=== PATIENT | male | born 1950 | race Caucasian/White ===

== ENCOUNTER → 2016-11-07 | Outpatient (CLI) | payer MEDICARE ==
--- NOTE | 2016-11-07 11:42 | US ---
EXAMINATION TYPE: US kidneys/renal and bladder DATE OF EXAM: 11/07/2016 9:02 AM COMPARISON: NONE CLINICAL HISTORY: 66-year-old male with R31.9 hematuria. TECHNIQUE: Multiple sonographic images of the kidneys and bladder were obtained. FINDINGS: EXAM MEASUREMENTS: Right Kidney: 12.1 x 5.7 x 4.6 cm without hydronephrosis. There is a hypoechoic structure within the upper to mid pole measuring 2.2 cm, partially exophytic. Left Kidney: 11.4 x 6.0 x 5.1 cm without hydronephrosis. No gross abnormality of the partially urine distended bladder. Both ureteral jets are visualized. IMPRESSION: 1. No hydronephrosis. 2. A 2.2 cm partially exophytic hypoechoic lesion from the upper to mid pole right kidney. While a co mplicated cyst is possible, given the appearance, a small solid mass is not excluded. A follow-up darnell al mass protocol MRI or CT can be performed to further characterize.
--- NOTE | 2016-11-07 11:52 | XR ---
EXAMINATION TYPE: XR chest 2V DATE OF EXAM: 11/07/2016 9:26 AM COMPARISON: 03/18/2016 HISTORY: 66-year-old male with chest pain TECHNIQUE: AP and lateral views FINDINGS: The cardiomediastinal silhouette, aorta, and pulmonary vasculature are within normal limits. Some str john atelectasis along the left heart margin. No consolidation or pleural effusion. However, there is a large hiatal hernia demonstrated. Some lobulated density is seen within the herni a sac projection. IMPRESSION: 1. No acute cardiopulmonary process. 2. Large hiatal hernia. Some lobulated density within the hernia on the lateral view could be project ional or could represent retained ingested material. Correlate to exclude any upper GI bleeding such as from a gastric neoplastic process. Direct visualization as clinically indicated.
--- NOTE | 2016-11-07 12:40 | XR ---
EXAMINATION TYPE: AP view pelvis and 2 views each hip DATE OF EXAM: 11/07/2016 9:26 AM COMPARISON: NONE HISTORY: 66-year-old male with pain and history of arthritis. FINDINGS: There is mild marginal spurring of both hips with subchondral sclerosis along the acetabular roofs. N o acute fracture, subluxation, or dislocation is identified. Pubic symphysis and SI joints appear int act. IMPRESSION: Mild bilateral hip osteoarthrosis. No acute osseous abnormality seen.
--- NOTE | 2016-11-07 12:44 | XR ---
EXAMINATION TYPE: XR lumbosacral spine min 4V DATE OF EXAM: 11/07/2016 9:26 AM COMPARISON: NONE HISTORY: 66-year-old male with a history of pain TECHNIQUE: 5 views FINDINGS: Levoconvex rotary curvature of the lumbar spine with hypertrophic facet arthropathy mid to lower lumb ar spine. There are 5 lumbar-type vertebral bodies. No pars interarticularis defect. Moderate to francia re degenerative disc disease at L5-S1 and then at L4-L5. This is characterized by disc space narrowin g, endplate sclerosis and spondylosis and vacuum phenomenon. There is grade 1 retrolisthesis of L2-L3. Vertebral body heights are preserved. IMPRESSION: 1. Moderate to advanced degenerative disc disease in the lower lumbar spine and hypertrophic facet ar thropathy mid to lower lumbar spine. 2. Degenerative grade 1 retrolisthesis at L2/L3. 3. No vertebral compression collapse.
== END | disposition home or self-care (01) ==
LOC: RADUSMAIN 08:32
PROVIDERS: ATTEND Family Medicine
DX: N28.9 Disorder of kidney and ureter, unspecified (principal); K44.9 Diaphragmatic hernia without obstruction or gangrene; M16.0 Bilateral primary osteoarthritis of hip; M51.36 Other intervertebral disc degeneration, lumbar region; M12.88 Other specific arthropathies, not elsewhere classified, other specified site
CPT/HCPCS: 71020; 72110; 73521; 76770

== ENCOUNTER → 2016-11-11 | Outpatient (CLI) | payer MEDICARE ==
[2016-11-11 18:19] LABS: Blood Urea Nitrogen 25 mg/dL (9-20); Non-African American GFR(MDRD) >60 (>60 ml/min/1.73 sqM)
--- NOTE | 2016-11-12 08:05 | CT ---
EXAMINATION TYPE: CT abdomen wo/w con DATE OF EXAM: 11/11/2016 6:47 PM COMPARISON: NONE HISTORY: Pt states of adrenal mass. CT DLP: 1629.9 mGycm CONTRAST: CT scan of the abdomen is performed with Oral Contrast and without and with IV Contrast, patient inje cted with 100 mL of Omnipaque 300. FINDINGS: LUNG BASES-: No visible nodule. No infiltrate. LIVER/GB: No calcified gallstones. No space occupying hepatic lesion. Biliary tree is of normal ca liber. PANCREAS: No inflammation. No distinct mass. SPLEEN: No splenic enlargement. No lesion seen. ADRENALS: No nodule. No thickening. KIDNEYS/BLADDER: No hydronephrosis. Nonobstructing 3 mm calculus lower pole left kidney. 3.5 cm simp le exophytic cyst midpole right kidney. Urinary bladder grossly unremarkable. BOWEL: Normal bowel caliber. No inflammation. The stomach is entirely intrathoracic in position. LYMPH NODES: No greater than 1cm abdominal or pelvic lymph nodes are appreciated. AORTA: No significant abnormality. OSSEOUS STRUCTURES: No significant abnormality is seen. OTHER: No significant additional abnormality is seen. IMPRESSION: 1. No adrenal mass or thickening seen. 2.The stomach is entirely intrathoracic in position. 3. Nonobstructing calculus left kidney.
== END | disposition home or self-care (01) ==
LOC: RADCTMAIN 17:35
PROVIDERS: ATTEND Family Medicine
DX: N20.0 Calculus of kidney (principal)
CPT/HCPCS: 82565; 84520; 74170; 36415; Q9967

== ENCOUNTER 2016-11-17 06:45 | Day surgery (SDC) | payer MEDICARE ==
[2016-11-15 11:29] VITALS: BMI 29.2
[~2016-11-17 06:45] MED LIST: LACTATED RINGERS 1,000 ML IV SCH
[2016-11-17 07:15] VITALS: TEMP 97.5
[2016-11-17 07:19] LABS: Glucose,Whole Blood 187 mg/dL (75-99)
[2016-11-17] MEDS ORDERED: LACTATED RINGERS 1,000 ML IV ONE ×2 (07:19)
[2016-11-17] MEDS ORDERED: LIDOCAINE 1% INJ 10MG/ML (20 ML MDV) ONE (07:54)
[2016-11-17] MEDS ORDERED: PROPOFOL 10 MG/ML 20 ML VIAL IV ONE (07:54)
[2016-11-17 08:39] VITALS: BP 116/79; PULSE 67; RESP 18
[2016-11-17 08:51] LABS: Glucose,Whole Blood 188 mg/dL (75-99)
--- NOTE | 2016-11-17 12:32 | P.PCN ---
Date of Procedure: 11/17/16 Procedure(s) Performed: Procedure: Esophagogastroduodenoscopy and biopsy. Preoperative diagnosis: Anemia. Postoperative diagnosis: 1. Large hiatal hernia with no obvious esophagitis or complicated reflux disease. 2. Mild antral gastritis. 2. Duodenum with large duodenal bulb polyp snared and removed piecemeal. Preparation and sedation: Was provided by anesthesia. Brief clinical history: The patient is a 66-year-old male who is referred for this evaluation because of anemia. The patient had colonoscopy within the last year or 2. He has no upper GI complaints or alarm symptoms. Procedure: With the patient on his left lateral decubitus position and after informed consent and adequate sedation, I passed the Olympus-GIF 160 video upper endoscope through the cricopharyngeus down the esophagus. GE junction was around 35 cm from the incisors and the esophagus did not show any obvious esophagitis or complicated reflux disease or any mucosal tears or varices. The endoscope was then passed through a large hiatal hernia to the rest of the stomach which was insufflated with air and inspected in detail including the retroflex view in the cardia. There was minimal mottling and erythema in the antrum but no ulcers or erosions. Pyloric channel did not show any ulcers. Duodenal bulb showed mild erythema and a large polyp measuring around 2-3 cm. It was showing some friability. I removed the polyp with the snare piecemeal. Post bulbar area and descending duodenum appeared within normal limits. Because of the anemia, I obtained multiple biopsies from the duodenum, antrum and esophagus then the endoscope was withdrawn. The patient tolerated the procedure well. Plan: The patient was reassured. Will await pathology results. Consideration can be given for a capsule endoscopy depending on his course and pathology results. He will follow up with you as planned.
== END 2016-11-17 09:25 | disposition home or self-care (01) ==
LOC: ORWHC2ENDO 06:45
DX: K44.9 Diaphragmatic hernia without obstruction or gangrene (principal); K29.70 Gastritis, unspecified, without bleeding; K31.7 Polyp of stomach and duodenum; I10 Essential (primary) hypertension; E78.5 Hyperlipidemia, unspecified; J45.909 Unspecified asthma, uncomplicated; E11.9 Type 2 diabetes mellitus without complications; Z79.84 Long term (current) use of oral hypoglycemic drugs; K21.9 Gastro-esophageal reflux disease without esophagitis; F39 Unspecified mood [affective] disorder; Z79.1 Long term (current) use of non-steroidal anti-inflammatories (NSAID); Z79.899 Other long term (current) drug therapy
CPT/HCPCS: 88305; 88342; 43239; 43251; J2001; J2704; 44364; 44369; 45380; 45385; 99153

== ENCOUNTER → 2018-03-17 | Outpatient (CLI) | payer MEDICARE ==
[2018-03-17 10:19] LABS: Anisocytosis Slight; Basophils % (A) 1 %; Eosinophils # (A) 0.1 k/uL (0-0.7); Eosinophils % (A) 2 %; HCT 30.6 % (39.0-53.0); HGB 8.9 gm/dL (13.0-17.5); Hypochromasia Marked; Lymphocytes # (A) 1.1 k/uL (1.0-4.8); Lymphocytes % (A) 26 %; MCH 20.3 pg (25.0-35.0); Mean Platelet Volume 7.2; Microcytosis Marked; Monocytes # (A) 0.3 k/uL (0-1.0); Monocytes % (A) 7 %; Neutrophils # (A) 2.6 k/uL (1.3-7.7); Neutrophils % (A) 62 %; Platelet Count 267 k/uL (150-450); Poikilocytosis Slight; RBC 4.37 m/uL (4.30-5.90); RDW 16.3 % (11.5-15.5); WBC 4.2 k/uL (3.8-10.6)
[2018-03-17 10:40] LABS: ALT 33 U/L (21-72); AST 26 U/L (17-59); Albumin 3.7 g/dL (3.5-5.0); Alkaline Phosphatase 117 U/L (38-126); Anion Gap 10 mmol/L; Blood Urea Nitrogen 19 mg/dL (9-20); Carbon Dioxide 24 mmol/L (22-30); Chloride 104 mmol/L (98-107); Cholesterol 187 mg/dL (<200); Glucose 225 mg/dL (74-99); HDL Cholesterol 41 mg/dL (40-60); LDL Cholesterol,Calculated 100 mg/dL (0-99); Potassium 5.4 mmol/L (3.5-5.1); Sodium 138 mmol/L (137-145); Total Bilirubin 0.3 mg/dL (0.2-1.3); Total Protein 5.8 g/dL (6.3-8.2); Triglycerides 229 mg/dL (<150)
[2018-03-17 20:07] LABS: Hemoglobin A1C 10.1 % (4.0-6.0)
== END | disposition home or self-care (01) ==
LOC: LABWHC1 08:45
PROVIDERS: ATTEND Family Medicine
DX: E11.9 Type 2 diabetes mellitus without complications (principal); E78.5 Hyperlipidemia, unspecified; I10 Essential (primary) hypertension
CPT/HCPCS: 36415; 80053; 80061; 82043; 82570; 83036; 85025

== ENCOUNTER → 2019-08-26 | Outpatient (CLI) | payer MEDICARE ==
--- NOTE | 2019-08-26 10:31 | XR ---
EXAMINATION TYPE: XR chest 2V DATE OF EXAM: 08/26/2019 COMPARISON: 09/07/2017 HISTORY: 69-year-old male pneumonia and cough TECHNIQUE: Frontal and lateral views FINDINGS: Heart normal size. Aorta and pulmonary vasculature within normal limits. There is some mild patchy pe ripheral left basilar opacity. Redemonstrated large hiatal hernia. IMPRESSION: Redemonstrated large hiatal hernia with intrathoracic stomach. There is some patchy peripheral left basilar opacity that could represent atelectasis or mild infiltrate.
== END | disposition home or self-care (01) ==
LOC: RADXRMAIN 10:08
PROVIDERS: ATTEND Family Medicine
DX: R91.8 Other nonspecific abnormal finding of lung field (principal); K44.9 Diaphragmatic hernia without obstruction or gangrene
CPT/HCPCS: 71046

== ENCOUNTER 2019-10-07 10:37 | Emergency (ER) | payer MEDICARE ==
[2019-10-07 11:17] VITALS: RESP 18; TEMP 98.5
[2019-10-07] MEDS ORDERED: IPRATROPIUM-ALBUTEROL 3 ML NEB INHALATION STA (11:44)
--- NOTE | 2019-10-07 12:19 | XR ---
EXAMINATION TYPE: XR chest 2V DATE OF EXAM: 10/07/2019 COMPARISON: Chest x-ray August 26, 2019. HISTORY: History of pneumonia with difficulty breathing. TECHNIQUE: Frontal and lateral views of the chest are obtained. FINDINGS: There is no focal air space opacity, pleural effusion, or pneumothorax seen currently. In terval resolution of a left basilar opacity. The cardiac silhouette size is stable and upper limits o f normal. Retrocardiac opacity consistent with large size hiatal hernia redemonstrated. Multilevel s purring of thoracic spine again seen. IMPRESSION: No suspicious acute infiltrate currently.
--- NOTE | 2019-10-07 12:29 | ED ---
SOB HPI - General Chief Complaint: Shortness of Breath Stated Complaint: SOB Time Seen by Provider: 10/07/19 11:27 Source: patient Mode of arrival: ambulatory Limitations: no limitations - History of Present Illness Initial Comments: Patient is a 69-year-old male presenting to emergency Department with complaints of shortness of breath secondary to pneumonia for 2 months. Patient was first and is pneumonia and July, he was rechecked a month later and pneumonia was still there so he was retreated with abx and placed on steroids. Patient presents today with continued cough, congestion, shortness of breath, burning with cough. He still has 2 more days of steroids to take however his symptoms have not improved. Patient does have history of asthma. Patient denies fever, chills although he's been having hot flashes. Patient denies nausea, vomiting, abdominal pain. Patient is no other complaints at this time. Upon arrival to the ER, patient was stating at 94% on room air, rest of vitals are normal. - Related Data Home Medications Medication Instructions Recorded Confirmed Citalopram Hydrobromide [CeleXA] 20 mg PO DAILY 03/18/16 11/15/16 Enalapril [Vasotec] 5 mg PO DAILY 03/18/16 11/15/16 Metoprolol Tartrate [Lopressor] 25 mg PO BID 03/18/16 11/15/16 Montelukast Sodium [Singulair] 10 mg PO HS 03/18/16 11/15/16 metFORMIN HCL [Glucophage] 500 mg PO BID 03/18/16 11/15/16 Atorvastatin [Lipitor] 40 mg PO HS 11/15/16 11/15/16 Ferrous Sulfate [Feosol] 325 mg PO TID 11/15/16 11/15/16 Ibuprofen [Motrin] 800 mg PO Q8HR PRN 11/15/16 11/15/16 Ranitidine HCl [Zantac] 150 mg PO BID 11/15/16 11/15/16 Rescue Inhaler 1 puff INHALATION DIRECTED PRN 11/15/16 Allergies Allergy/AdvReac Type Severity Reaction Status Date / Time No Known Allergies Allergy Verified 10/07/19 11:11 Review of Systems ROS Statement: Those systems with pertinent positive or pertinent negative responses have been documented in the HPI. ROS Other: All systems not noted in ROS Statement are negative. Past Medical History Past Medical History: Asthma, Cancer, Diabetes Mellitus, GERD/Reflux, Hyperlipidemia, Hypertension, Osteoarthritis (OA) Additional Past Medical History / Comment(s): HIATAL HERNIA, HX OF MELANOMA, FREQUENT DIARRHEA, HEMATURIA., ANEMIA. History of Any Multi-Drug Resistant Organisms: None Reported Past Surgical History: Cardiac Ablation Additional Past Surgical History / Comment(s): MELANOMA REMOVED. Past Anesthesia/Blood Transfusion Reactions: No Reported Reaction Past Psychological History: Anxiety Smoking Status: Never smoker Past Alcohol Use History: Occasional Past Drug Use History: None Reported - Past Family History Father Family Medical History: Cancer Additional Family Medical History / Comment(s): COLON CANCER General Exam - General Exam Comments Initial Comments: GENERAL: Well-appearing, well-nourished and in no acute distress. HEAD: Atraumatic, normocephalic. EYES: Pupils equal round and reactive to light, extraocular movements intact, sclera anicteric, conjunctiva are normal. ENT: TMs normal, nares patent, oropharynx clear without exudates. Moist mucous membranes. NECK: Normal range of motion, supple without lymphadenopathy or JVD. LUNGS: Breath sounds clear to auscultation bilaterally and equal. No wheezes rales or rhonchi. Dry cough noticed. HEART: Regular rate and rhythm without murmurs, rubs or gallops. ABDOMEN: Soft, nontender, normoactive bowel sounds. No guarding, no rebound. No masses appreciated. : Deferred EXTREMITIES: Normal range of motion, no pitting or edema. No clubbing or cyanosis. NEUROLOGICAL: Normal speech, normal gait. PSYCH: Normal mood, normal affect. SKIN: Warm, Dry, normal turgor, no rashes or lesions noted. Limitations: no limitations Course Vital Signs 10/07/19 10/07/19 10/07/19 11:11 11:38 12:17 Temperature 98.5 F Pulse Rate 71 67 Respiratory 18 18 Rate Blood Pressure 125/78 O2 Sat by Pulse 94 L Oximetry 10/07/19 10/07/19 10/07/19 12:27 12:44 14:17 Temperature Pulse Rate 65 75 67 Respiratory 18 18 Rate Blood Pressure 110/83 129/70 O2 Sat by Pulse 96 98 Oximetry 10/07/19 15:11 Temperature 98.5 F Pulse Rate 67 Respiratory 18 Rate Blood Pressure 129/70 O2 Sat by Pulse 98 Oximetry Medical Decision Making - Medical Decision Making Patient is 69-year-old male presenting with shortness of breath, cough has been ongoing for 2 months. Patient was treated with for pneumonia twice now with antibiotic and steroids. Patient is 94% on room air, rest of vitals normal upon arrival. Labs show leukocytosis of 15.3. CMP is normal. Troponin is normal. No acute EKG changes. Chest x-ray shows no acute abnormalities. D-dimer is elevated. CT chest was performed, no acute PE. Small bilateral pleural effusions. Follow-up study recommended to rule out underlying mass or nodule. Patient's vital signs remained stable. Discussed these findings with the patient. 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 Santizo in. He will continue his course of steroids. No further antibiotics are indicated at this time. Patient is in agreement with this plan of care. Patient is stable for discharge at this time. Return parameters were discussed with the patient and he verbalized understanding. Case discussed with Dr. Neri. - Lab Data Result diagrams: 10/07/19 11:50 10/07/19 11:50 Lab Results 10/07/19 10/07/19 10/07/19 Range/Units 11:50 11:50 11:50 WBC 15.3 H (3.8-10.6) k/uL RBC 5.04 (4.30-5.90) m/uL Hgb 13.9 (13.0-17.5) gm/dL Hct 43.4 (39.0-53.0) % MCV 86.2 D (80.0-100.0) fL MCH 27.5 (25.0-35.0) pg MCHC 31.9 (31.0-37.0) g/dL RDW 13.8 (11.5-15.5) % Plt Count 279 (150-450) k/uL Neutrophils % 84 % Lymphocytes % 9 % Monocytes % 5 % Eosinophils % 1 % Basophils % 0 % Neutrophils # 12.8 H (1.3-7.7) k/uL Lymphocytes # 1.4 (1.0-4.8) k/uL Monocytes # 0.7 (0-1.0) k/uL Eosinophils # 0.2 (0-0.7) k/uL Basophils # 0.0 (0-0.2) k/uL PT 10.2 (9.0-12.0) sec INR 0.9 (<1.2) APTT 24.6 (22.0-30.0) sec D-Dimer (<0.60) mg/L FEU Sodium 137 (137-145) mmol/L Potassium 5.5 H (3.5-5.1) mmol/L Chloride 101 (98-107) mmol/L Carbon Dioxide 25 (22-30) mmol/L Anion Gap 11 mmol/L BUN 17 (9-20) mg/dL Creatinine 0.93 (0.66-1.25) mg/dL Est GFR (CKD-EPI)AfAm >90 (>60 ml/min/1.73 sqM) Est GFR (CKD-EPI)NonAf 84 (>60 ml/min/1.73 sqM) Glucose 161 H (74-99) mg/dL Calcium 9.4 (8.4-10.2) mg/dL Total Bilirubin 0.9 (0.2-1.3) mg/dL AST 41 (17-59) U/L ALT 25 (4-49) U/L Alkaline Phosphatase 124 (38-126) U/L Troponin I (0.000-0.034) ng/mL Total Protein 8.0 (6.3-8.2) g/dL Albumin 4.4 (3.5-5.0) g/dL 10/07/19 10/07/19 Range/Units 11:50 11:50 WBC (3.8-10.6) k/uL RBC (4.30-5.90) m/uL Hgb (13.0-17.5) gm/dL Hct (39.0-53.0) % MCV (80.0-100.0) fL MCH (25.0-35.0) pg MCHC (31.0-37.0) g/dL RDW (11.5-15.5) % Plt Count (150-450) k/uL Neutrophils % % Lymphocytes % % Monocytes % % Eosinophils % % Basophils % % Neutrophils # (1.3-7.7) k/uL Lymphocytes # (1.0-4.8) k/uL Monocytes # (0-1.0) k/uL Eosinophils # (0-0.7) k/uL Basophils # (0-0.2) k/uL PT (9.0-12.0) sec INR (<1.2) APTT (22.0-30.0) sec D-Dimer 1.30 H (<0.60) mg/L FEU Sodium (137-145) mmol/L Potassium (3.5-5.1) mmol/L Chloride (98-107) mmol/L Carbon Dioxide (22-30) mmol/L Anion Gap mmol/L BUN (9-20) mg/dL Creatinine (0.66-1.25) mg/dL Est GFR (CKD-EPI)AfAm (>60 ml/min/1.73 sqM) Est GFR (CKD-EPI)NonAf (>60 ml/min/1.73 sqM) Glucose (74-99) mg/dL Calcium (8.4-10.2) mg/dL Total Bilirubin (0.2-1.3) mg/dL AST (17-59) U/L ALT (4-49) U/L Alkaline Phosphatase (38-126) U/L Troponin I <0.012 (0.000-0.034) ng/mL Total Protein (6.3-8.2) g/dL Albumin (3.5-5.0) g/dL - EKG Data EKG Comments: Ventricular rate 67, FL interval 148, QTc 456. Sinus rhythm with marked sinus arrhythmia. No acute ST segment changes. Similar to previous 2016. Disposition Clinical Impression: Cough, Dyspnea Disposition: HOME SELF-CARE Condition: Stable Instructions (If sedation given, give patient instructions): Chronic Cough (ED) Additional Instructions: Please return to the Emergency Department if symptoms worsen or any other concerns. Initial course of steroids. Follow-up with Dr. Salcedo as discussed Is patient prescribed a controlled substance at d/c from ED?: No Referrals: Rhonda Hensley MD [Primary Care Provider] - 1-2 days Yi Nickerson MD [STAFF PHYSICIAN] - 1-2 days
[2019-10-07 12:35] LABS: Basophils % (A) 0 %; Eosinophils # (A) 0.2 k/uL (0-0.7); Eosinophils % (A) 1 %; HCT 43.4 % (39.0-53.0); HGB 13.9 gm/dL (13.0-17.5); Lymphocytes # (A) 1.4 k/uL (1.0-4.8); Lymphocytes % (A) 9 %; MCH 27.5 pg (25.0-35.0); MCHC 31.9 g/dL (31.0-37.0); Mean Platelet Volume 10.2; Monocytes # (A) 0.7 k/uL (0-1.0); Monocytes % (A) 5 %; Neutrophils # (A) 12.8 k/uL (1.3-7.7); Neutrophils % (A) 84 %; Platelet Count 279 k/uL (150-450); RBC 5.04 m/uL (4.30-5.90); RDW 13.8 % (11.5-15.5); WBC 15.3 k/uL (3.8-10.6)
[2019-10-07 12:39] LABS: MCV 86.2 fL (80.0-100.0)
[2019-10-07 12:40] LABS: ALT 25 U/L (4-49); AST 41 U/L (17-59); African American GFR (CKD) >90 (>60 ml/min/1.73 sqM); Albumin 4.4 g/dL (3.5-5.0); Alkaline Phosphatase 124 U/L (38-126); Anion Gap 11 mmol/L; Blood Urea Nitrogen 17 mg/dL (9-20); Calcium 9.4 mg/dL (8.4-10.2); Carbon Dioxide 25 mmol/L (22-30); Chloride 101 mmol/L (98-107); Glucose 161 mg/dL (74-99); Non-African American GFR(CKD) 84 (>60 ml/min/1.73 sqM); Sodium 137 mmol/L (137-145); Total Bilirubin 0.9 mg/dL (0.2-1.3)
[2019-10-07 12:43] LABS: INR 0.9 (<1.2); Partial Thromboplastin Time 24.6 sec (22.0-30.0); Prothrombin Time 10.2 sec (9.0-12.0)
[2019-10-07 12:52] LABS: Potassium 5.5 mmol/L (3.5-5.1)
[2019-10-07 14:17] VITALS: BP 129/70; PULSE 67
--- NOTE | 2019-10-07 14:56 | CT ---
EXAMINATION TYPE: CT angio chest DATE OF EXAM: 10/07/2019 COMPARISON: NONE HISTORY: Dyspnea, cough and elevated d-dimer. CT DLP: 591.4 mGycm. Automated Exposure Control for Dose Reduction was Utilized. CONTRAST: CTA scan of the thorax is performed with IV Contrast, patient injected with 100 mL of Isovue 370, pul monary embolism protocol. MIP Images are created on CT scanner and reviewed. FINDINGS: LUNGS: There is right lower lobe masslike consolidation laterally near image 93 and posteriorly near image 99 with tiny right greater than left pleural effusions. Left lung is clear. No pneumothorax jaylyn aterally. MEDIASTINUM: There is satisfactory enhancement of the pulmonary artery and its branches, there is no CT evidence for pulmonary embolism. There are no greater than 1 cm hilar or mediastinal lymph nodes . Small to tiny or pericardial effusion is seen. No cardiomegaly. There is moderate to large sized hi atal hernia or intrathoracic stomach with twisting and poor distention. Mild gas filled prominence of proximal mid esophagus superior to this without suspicious focal dilatation. OTHER: [id number] fat replaced atrophy of pancreas. [id number] multilevel spurring in t he spine. IMPRESSION: 1. No CT evidence for acute pulmonary embolism. 2. Tiny right greater than left pleural effusions with multifocal right basilar masslike consolidatio ns favor multifocal right lower lobe pneumonias. Follow-up study after treatment is advised to rule o ut underlying mass or nodule.
== END 2019-10-07 15:24 | disposition home or self-care (01) ==
LOC: EC 10:37
DX: R05 Cough (principal); R06.02 Shortness of breath; D72.829 Elevated white blood cell count, unspecified; R79.1 Abnormal coagulation profile; J90 Pleural effusion, not elsewhere classified; J45.909 Unspecified asthma, uncomplicated; E11.9 Type 2 diabetes mellitus without complications; K21.9 Gastro-esophageal reflux disease without esophagitis; E78.5 Hyperlipidemia, unspecified; I10 Essential (primary) hypertension; M19.90 Unspecified osteoarthritis, unspecified site; D64.9 Anemia, unspecified; F41.9 Anxiety disorder, unspecified; Z79.1 Long term (current) use of non-steroidal anti-inflammatories (NSAID); Z79.84 Long term (current) use of oral hypoglycemic drugs; Z79.899 Other long term (current) drug therapy; Z85.820 Personal history of malignant melanoma of skin; Z87.01 Personal history of pneumonia (recurrent); Z98.890 Other specified postprocedural states
CPT/HCPCS: 36415; 94640; 93005; 85379; 80053; 84484; 85025; 85610; 85730; 71046; 71275; 99285; Q9967

== ENCOUNTER → 2020-03-19 | Outpatient (CLI) | payer MEDICARE ==
--- NOTE | 2020-03-19 14:40 | CT ---
EXAMINATION TYPE: CT chest w con DATE OF EXAM: 03/19/2020 COMPARISON: 10/07/2019 HISTORY: 69-year-old male lobar pneumonia Follow up scan per patient. TECHNIQUE: Contiguous axial scanning of the chest after the administration of 100 mL of Isovue 300. Coronal/sagittal reconstructions performed. CT DLP: 530mGycm. Automatic exposure control utilized for a dose reduction. FINDINGS: Large lobulated nodule of the isthmus and inferior left lobe measuring up to 4.0 x 2.3 cm and be furt her evaluated with dedicated thyroid ultrasound. It appears relatively similar to prior exam. Heart normal size without pericardial effusion. Scattered coronary artery calcifications are present. Ectatic ascending aorta 2.8 cm. Bovine configuration to the aortic arch. Mild bilateral gynecomastia. Following but nonenlarged 1.0 cm subcarinal lymph node is slightly small er from prior exam. Previous masslike areas of consolidation within the posterior right lower lobe show significant inter beryl improvement. Residual patchy nodular densities remain, axial image 47 and 51. An additional 6 mon th follow-up can reassess Large hiatal hernia containing the entire stomach within the lower left chest. Small renal cortical cysts. Scattered left-sided colonic diverticulosis. Fatty atrophy of the pancrea s. Bones: Anterior spondylosis with a thoracic spine with mild to moderate degenerative disc disease. IMPRESSION: 1. Significant interval improvement with some residual patchy and nodular density at the right base t hat could represent scarring. Additional 6 month follow-up recommended to reassess. 2. Redemonstrated large hiatal hernia with the entire stomach located within the lower left chest. 3. Lobulated 4.0 x 2.3 cm left thyroid nodule. Dedicated thyroid ultrasound recommended to further ch aracterize.
== END | disposition home or self-care (01) ==
LOC: RADCTMAIN 12:47
PROVIDERS: ATTEND Internal Medicine Critical Care Medicine
DX: E04.1 Nontoxic single thyroid nodule (principal); K44.9 Diaphragmatic hernia without obstruction or gangrene; R91.1 Solitary pulmonary nodule; J18.1 Lobar pneumonia, unspecified organism
CPT/HCPCS: 82565; 84520; 71260; 36415; Q9967

== ENCOUNTER → 2020-03-27 | Outpatient (CLI) | payer MEDICARE ==
[2020-03-27 08:27] LABS: HGB 13.4 gm/dL (13.0-17.5); Hypochromasia Slight; MCH 27.5 pg (25.0-35.0); MCHC 31.2 g/dL (31.0-37.0); Mean Platelet Volume 8.7; Platelet Count 202 k/uL (150-450); RBC 4.89 m/uL (4.30-5.90); RDW 14.8 % (11.5-15.5); WBC 6.1 k/uL (3.8-10.6)
[2020-03-27 08:30] LABS: Appearance,Urine Clear (Clear); Bilirubin,Urine Negative (Negative); Blood,Urine Negative (Negative); Color,Urine Yellow; Glucose,Urine (UA) 1+ (Negative); Ketones,Urine Negative (Negative); Leukocyte Esterase,Urine Negative (Negative); Nitrite,Urine Negative (Negative); PH, Urine 5.5 (5.0-8.0); Protein,Urine Trace (Negative); Specific Gravity,Urine 1.021 (1.001-1.035); Urobilinogen,Urine <2.0 mg/dL (<2.0)
[2020-03-27 16:53] LABS: African American GFR (CKD) 88.6 (60.0-200.0); Albumin 4.2 g/dL (3.80-4.90); Albumin/Globulin Ratio 2.47 (1.60-3.17); Anion Gap 8.3 mmol/L (4.00-12.00); Calcium 8.8 mg/dL (8.7-10.3); Carbon Dioxide 23.7 mmol/L (21.6-31.8); Chol/HDL Ratio 3.93; Globulin 1.7 g/dL (1.6-3.3); LDL Cholesterol,Calculated 91.8 mg/dL (0.0-131.0); Non-African American GFR(CKD) 76.5 (60.0-200.0); Potassium 5.5 mmol/L (3.5-5.5); Total Bilirubin 0.3 mg/dL (0.2-1.2); Total Protein 5.9 g/dL (6.2-8.2); VLDL Calculation 25.2 mg/dL (5.00-40.00)
[2020-03-28 04:14] LABS: Hemoglobin A1C 7.7 % (4.0-6.0)
== END | disposition home or self-care (01) ==
LOC: LABWHC1 07:31
PROVIDERS: ATTEND Family Medicine
DX: E11.9 Type 2 diabetes mellitus without complications (principal); E78.5 Hyperlipidemia, unspecified; I10 Essential (primary) hypertension; Z79.899 Other long term (current) drug therapy
CPT/HCPCS: 36415; 80053; 80061; 81003; 82550; 83036; 85027

== ENCOUNTER → 2020-04-01 | Outpatient (CLI) | payer MEDICARE ==
--- NOTE | 2020-04-02 07:41 | US ---
EXAMINATION TYPE: US thyroid st tissue head/neck DATE OF EXAM: 04/01/2020 COMPARISON: CT CLINICAL HISTORY: R22.1 Neck mass/Lump. Left thyroid nodule seen on CT. GLAND SIZE: Right Lobe: 3.6 x 1.9 x 1.1 cm Overall Parenchyma: heterogenous Left Lobe: 5.5 x 3.2 x 2.2 cm Overall Parenchyma: heterogeneous Isthmus Thickness: 0.5 cm NODULES RIGHT: # of nodules measured on right: 0 LEFT: # of nodules measured on left: 2 1. 1.0 X 0.6 x 0.7 cm hypoechoic mixed nodule at the upper pole with well-defined margins. This no dule is taller than wide and shows no intranodular vascularity. 2. 3.4 X 3.2 x 2.3 cm isoechoic mixed nodule at the mid and lower pole with well-defined margins. T his nodule is wider than tall and shows intranodular vascularity. ISTHMUS: # of nodules measured in the isthmus: 0 Bilateral neck scanned: no evidence of lymphadenopathy. IMPRESSION: 1. Two enlarged thyroid lobe nodules.
== END | disposition home or self-care (01) ==
LOC: RADUSWWP 16:04
PROVIDERS: ATTEND Family Medicine
DX: E04.2 Nontoxic multinodular goiter (principal)
CPT/HCPCS: 76536

== ENCOUNTER → 2020-11-16 | Outpatient (CLI) | payer MEDICARE ==
--- NOTE | 2020-11-16 22:23 | US ---
EXAMINATION TYPE: US thyroid st tissue head/neck DATE OF EXAM: 11/16/2020 COMPARISON: Prior thyroid ultrasound April 01, 2020 CLINICAL HISTORY: E04.1 THYROID NODULE. follow up exam GLAND SIZE: Right Lobe: 3.6 x 0.9 x 1.7 cm Overall Parenchyma: homogenous Left Lobe: 5.3 x 2.7 x 2.3 cm Overall Parenchyma: heterogeneous Isthmus Thickness: 0.6 cm NODULES RIGHT: # of nodules measured on right: 0 LEFT: # of nodules measured on left: 1 1. 4.1 X 3.8 x 2.3 cm mixed cystic and solid nodule, which is wider than tall, with smooth margins, without echogenic foci. Prior size: 3.4 x 3.2 x 2.3 cm ISTHMUS: # of nodules measured in the isthmus: 0 Bilateral neck scanned, no evidence of lymphadenopathy. Homogeneous small size right thyroid with more heterogeneous enlarged left thyroid due to dominant so lid and cystic nodule. No significant interval change accounting for technical differences. IMPRESSION: As above. No new greater than 1 cm nodules. Correlate clinically if sampling has been per formed or documented long-term stability for dominant left thyroid nodule.
--- NOTE | 2020-11-17 06:42 | CT ---
EXAMINATION TYPE: CT chest wo con DATE OF EXAM: 11/16/2020 COMPARISON: CT chest March 19, [address] October 07, 2019 HISTORY: Pulmonary nodule. CT DLP: 659 mGycm. Automated Exposure Control for Dose Reduction was Utilized. TECHNIQUE: CT scan of the thorax is performed without IV contrast. FINDINGS: LUNGS: Occasional scattered micronodule, for reference there is stable 2 to 3 mm peripheral posterior right upper lobe nodule axial image 13. Mild to moderate bibasilar linear scarring and/or atelectasi s slightly more nodular in appearance in the right lung base laterally and posteriorly shows no signi ficant interval increase in size or progression from most recent CT. Postinflammatory scarring is salazar pected. No new greater than 5 mm pulmonary nodules or masses. No pleural effusion or pneumothorax see n. MEDIASTINUM: Lack of IV contrast is noted to limit evaluation for mediastinal and especially hilar ad enopathy. There are no definitive new greater than 1 cm hilar or mediastinal lymph nodes. No cardio megaly or pericardial effusion is seen. Calcification at level of mitral valve and mild to moderate c alcification in the LAD are redemonstrated. There is persistent large hiatal hernia or intrathoracic stomach with abnormal twisting. There is enlarged left thyroid with large thyroid nodule redemonstrat ed. OTHER: Small degree of subareolar gynecomastia redemonstrated. Moderate generalized fat replaced atro phy of pancreas. Scoliotic curvature with multilevel spurring in the spine. IMPRESSION: Postinflammatory changes in the right lung base thought present. No new or enlarging grea ter than 5 mm nodules.
== END | disposition home or self-care (01) ==
LOC: RADUSWWP 16:29
PROVIDERS: ATTEND Family Medicine
DX: E04.2 Nontoxic multinodular goiter (principal); J98.4 Other disorders of lung
CPT/HCPCS: 71250; 76536

== ENCOUNTER → 2021-01-06 | Outpatient (CLI) | payer MEDICARE ==
[2021-01-06 12:25] LABS: HCT 41.4 % (39.0-53.0); HGB 13.8 gm/dL (13.0-17.5); MCH 28.1 pg (25.0-35.0); MCHC 33.2 g/dL (31.0-37.0); MCV 84.5 fL (80.0-100.0); Mean Platelet Volume 7.8; Platelet Count 214 k/uL (150-450); RDW 14.3 % (11.5-15.5); WBC 7.3 k/uL (3.8-10.6)
[2021-01-06 12:41] LABS: African American GFR (CKD) >90 (>60 ml/min/1.73 sqM); Anion Gap 8 mmol/L; Blood Urea Nitrogen 18 mg/dL (9-20); Carbon Dioxide 25 mmol/L (22-30); Chloride 102 mmol/L (98-107); Non-African American GFR(CKD) 79 (>60 ml/min/1.73 sqM); Sodium 135 mmol/L (137-145)
== END | disposition home or self-care (01) ==
LOC: LABPAT 11:39
PROVIDERS: ATTEND Internal Medicine Interventional Cardiology
DX: Z01.818 Encounter for other preprocedural examination (principal); R94.39 Abnormal result of other cardiovascular function study
CPT/HCPCS: 36415; 80051; 82565; 84520; 85027

== ENCOUNTER 2021-01-15 06:33 | Day surgery (SDC) | payer MEDICARE ==
[2021-01-08 11:05] VITALS: BMI 31.1
[~2021-01-15 06:33] MED LIST changes: +ALPRAZolam 0.25 MG TAB PO PRN; +ALPRAZolam 0.5 MG TAB PO PRN; +ASPIRIN 325 MG TAB PO STA; +ATORVASTATIN 80 MG TAB PO STA; +HEPARIN SODIUM,PORCINE 10,000 UNIT in SODIUM CHLORIDE 0.9% 1,000 ML IRRIGATION PRN; +HEPARIN SODIUM,PORCINE 2,500 UNIT in SODIUM CHLORIDE 0.9% 250 ML IRRIGATION PRN; -LACTATED RINGERS 1,000 ML IV SCH; +NITROGLYCERIN SL TABS 0.4 MG TAB SUBLINGUAL PRN; +SODIUM CHLORIDE 0.9% 1,000 ML in EMPTY BAG 1 BAG IV ONE
[2021-01-15] MEDS ORDERED: SODIUM CHLORIDE 0.9% 1,000 ML IV ONE (06:53)
[2021-01-15 07:08] LABS: Glucose,Whole Blood 207 mg/dL (75-99)
[2021-01-15 07:12] VITALS: RESP 16; TEMP 98.5
[2021-01-15] MEDS ORDERED: VERAPAMIL 2.5 MG/ML 2 ML AMP ONE (07:30)
[2021-01-15] MEDS ORDERED: LIDOCAINE 1% INJ 10MG/ML (20 ML MDV) ONE (07:30)
[2021-01-15] MEDS ORDERED: INSULIN ASPART (NovoLOG) 100 UNIT/ML VIAL SQ SCH (07:30)
[2021-01-15] MEDS ORDERED: fentaNYL (PF) 50 MCG/ML 2 ML AMP ONE (07:31)
[2021-01-15] MEDS ORDERED: fentaNYL (PF) 50 MCG/ML 2 ML AMP IVP ONE (07:33)
[2021-01-15] MEDS ORDERED: LIDOCAINE 1% INJ 10MG/ML (20 ML MDV) SQ ONE (07:35)
[2021-01-15] MEDS ORDERED: VERAPAMIL SYRINGE (5 MG/10 ML) INTRAARTER ONE (07:38)
[2021-01-15] MEDS ORDERED: HEPARIN SODIUM 1,000 UN/ML (10ML VL) IV ONE (07:48)
[2021-01-15] MEDS ORDERED: IOPAMIDOL-370 125ML BTL INJ ONE (07:57)
[2021-01-15] MEDS ORDERED: RESCUE INHALATION PRN (08:07)
[2021-01-15] MEDS ORDERED: RX INFO: IV CONTRAST WAS GIVEN 1 EACH MISC MISCELLANE PRN (08:07)
[2021-01-15] MEDS ORDERED: SODIUM CHLORIDE 0.9% 1,000 ML IV SCH (08:15)
--- NOTE | 2021-01-15 08:54 | CC ---
CARDIAC CATHETERIZATION REPORT Mr. Lamas is a 70-year-old male with a history of hypertension, hyperlipidemia, diabetes mellitus, and history of mild coronary artery disease by cardiac catheterization in 2015 who has been complaining of dyspnea on exertion underwent myocardial perfusion imaging that revealed evidence of inducible ischemia. In view of that, recommendation was made regarding cardiac catheterization. The procedure as well as the risks and the complications were discussed with the patient who is in full understanding and agreement. PROCEDURE: Patient was brought to lab rep in a fasting semi-sedated state after receiving fentanyl and Benadryl and achieving moderate conscious sedated state. Using Xylocaine anesthesia and Seldinger technique, a 6-Lao sheath was introduced in the right radial artery. Selective right and left coronary angiography performed using 5-Lao 3.5 bend left Sammi and 5 bend right Sammi catheter. Multiple views of the coronary artery including hemiaxial views obtained. The Sammi catheter was used to cross the aortic valve. Left ventricular end-diastolic pressure was calculated. Following that, catheter and sheath were removed. Hemostasis was obtained with deployment of TR band. There was no immediate complication. Patient is returned to his room in stable condition. FINDINGS: LEFT MAIN: This is a large-sized vessel, bifurcating into left circumflex, left anterior descending artery. Left main coronary artery has no evidence of high-grade stenosis. LEFT ANTERIOR DESCENDING ARTERY: This is a large-sized vessel reaching to the apex. Tapers down distal third, giving rise to a large diagonal branch proximally. The left anterior descending artery as well as branches have no evidence of obstructive coronary artery disease. LEFT CIRCUMFLEX: This is a nondominant large size vessel, giving rise to a large first obtuse marginal branch. The left circumflex and its branches have no evidence of obstructive coronary artery disease. RIGHT CORONARY ARTERY: This is a dominant vessel, large in caliber, bifurcating distally PDA and posterolateral segment and branches. The proximal right coronary artery has a 20% plaque. There is another plaque at the proximal segment of the PLV of 20%. The rest of the vessel has no high-grade stenosis. LEFT VENTRICULOGRAM: Left ventriculogram was not performed. HEMODYNAMICS: There was no gradient across the aortic valve. The left ventricular end-diastolic pressure was 10-12 mmHg. CONCLUSION: 1. Mild obstructive disease in the right coronary artery. 2. Normal left coronary anatomy. RECOMMENDATION: In view of finding anatomy, I recommend to continue medical therapy with aggressive coronary risk modifications that has been initiated. Those findings and recommendation were discussed with the patient and his family and they are in full understanding and agreement. Duration of sedation is 24 minutes. ROXANNE / MAYITON: [id number] /
--- NOTE | 2021-01-15 08:58 | LTR ---
January 15, 2021 Re: Vikas Lamas Dear Dr. Hensley: I had the opportunity to perform cardiac catheterization on Mr. Lamas at [facility] on the 15 of January and a full copy of the procedure note will be forwarded to you. In brief, he was found to have mild obstructive disease with no evidence of high- grade stenosis and based on those findings, I recommend to continue medical therapy with aggressive coronary risk modification that has been initiated. Thank you again for allowing me the opportunity to participate in his care. Please feel free to call for any questions. Sincerely yours, MD JOHANN McmahonL / MAYITON: [id number] /
[2021-01-15] MEDS ORDERED: METOPROLOL TARTRATE 25 MG TAB PO SCH (09:00)
[2021-01-15] MEDS ORDERED: FERROUS SULFATE 325 MG TAB PO SCH (09:00)
[2021-01-15] MEDS ORDERED: ENALAPRIL 5 MG PO SCH (09:00)
[2021-01-15] MEDS ORDERED: CITALOPRAM HYDROBROMIDE 20 MG TAB PO SCH (09:00)
[2021-01-15 13:54] VITALS: BP 136/76; PULSE 95
[2021-01-15] MEDS ORDERED: glipiZIDE 10 MG TAB PO SCH (17:30)
[2021-01-15] MEDS ORDERED: ATORVASTATIN 40 MG TAB PO SCH (21:00)
[2021-01-15] MEDS ORDERED: MONTELUKAST 10 MG TAB PO SCH (21:00)
== END 2021-01-15 13:03 | disposition home or self-care (01) ==
LOC: CATHCVL 06:33
PROVIDERS: ATTEND Internal Medicine Interventional Cardiology
DX: I25.10 Atherosclerotic heart disease of native coronary artery without angina pectoris (principal); I10 Essential (primary) hypertension; E78.00 Pure hypercholesterolemia, unspecified; E11.9 Type 2 diabetes mellitus without complications; E78.2 Mixed hyperlipidemia; Z87.891 Personal history of nicotine dependence; Z79.82 Long term (current) use of aspirin; Z79.899 Other long term (current) drug therapy; Z79.84 Long term (current) use of oral hypoglycemic drugs
CPT/HCPCS: 93458; C1769 ×2; C1894; J2001; J3010; J1644; Q9967

== ENCOUNTER 2021-12-12 07:33 | Emergency (ER) | payer MEDICARE ==
--- NOTE | 2021-12-12 08:26 | XR ---
EXAMINATION TYPE: XR chest 2V DATE OF EXAM: 12/12/2021 COMPARISON: 10/07/2019 HISTORY: Shortness of breath TECHNIQUE: Frontal and lateral views of the chest are obtained. FINDINGS: Scattered senescent parenchymal changes noted. Hyperinflation compatible with COPD. Left lower lobe atelectasis and/or infiltrate seen. Heart size is stable. Mediastinal structures are stable and grossly unremarkable. No evidence for hilar prominence. Degenerative changes dorsal spine. IMPRESSION: 1. Left lower lobe atelectasis and/or infiltrate seen.
[2021-12-12] MEDS ORDERED: cefTRIAXone 1,000 MG VIAL (IM USE) IM STA (08:36)
[2021-12-12] MEDS ORDERED: AZITHROMYCIN 250 MG TAB PO STA (08:39)
--- NOTE | 2021-12-12 08:39 | ED ---
General Adult HPI - General Chief complaint: Upper Respiratory Infection Stated complaint: cough, chest congestion Time Seen by Provider: 12/12/21 07:41 Source: patient, RN notes reviewed Mode of arrival: ambulatory Limitations: no limitations - History of Present Illness Initial comments: 71-year-old male presents emergency Department chief complaint of cough congestion times one week. Patient states started with sore throat and nasal congestion states she has a cough. He states since cough more and nighttime. He states is productive at times he complains of subjective fever with chills no chest painor shortness breath at this time denies any abdominal pain no leg swelling leg pain patient states that he has had prior vaccine for covid 19 - Related Data Home Medications Medication Instructions Recorded Confirmed Citalopram Hydrobromide [CeleXA] 20 mg PO DAILY 03/18/16 01/15/21 Enalapril [Vasotec] 5 mg PO DAILY 03/18/16 01/15/21 Metoprolol Tartrate [Lopressor] 25 mg PO BID 03/18/16 01/15/21 Montelukast Sodium [Singulair] 10 mg PO HS 03/18/16 01/15/21 metFORMIN HCL [Glucophage] 500 mg PO BID 03/18/16 01/15/21 Atorvastatin [Lipitor] 40 mg PO HS 11/15/16 01/15/21 Ferrous Sulfate [Feosol] 325 mg PO TID 11/15/16 01/15/21 Ranitidine HCl [Zantac] 150 mg PO BID 11/15/16 01/15/21 Rescue Inhaler 1 puff INHALATION DIRECTED PRN 11/15/16 01/08/21 glipiZIDE [Glucotrol] 20 mg PO AC-BID 01/08/21 01/15/21 Previous Rx's Medication Instructions Recorded Azithromycin [Zithromax Z-pack (6 0 mg PO DIRECTED #1 packet 12/12/21 tabs)] Allergies Allergy/AdvReac Type Severity Reaction Status Date / Time No Known Allergies Allergy Verified 12/12/21 07:39 Review of Systems ROS Statement: Those systems with pertinent positive or pertinent negative responses have been documented in the HPI. ROS Other: All systems not noted in ROS Statement are negative. Past Medical History Past Medical History: Asthma, Cancer, Diabetes Mellitus, GERD/Reflux, Hyperlipidemia, Hypertension, Osteoarthritis (OA) Additional Past Medical History / Comment(s): HIATAL HERNIA, HX OF MELANOMA, FREQUENT DIARRHEA, HEMATURIA., ANEMIA. History of Any Multi-Drug Resistant Organisms: None Reported Past Surgical History: Cardiac Ablation, Heart Catheterization Additional Past Surgical History / Comment(s): MELANOMA REMOVED. COLONOSCOPY, Past Anesthesia/Blood Transfusion Reactions: No Reported Reaction Past Psychological History: Anxiety Smoking Status: Never smoker Past Alcohol Use History: None Reported Past Drug Use History: None Reported - Past Family History Father Family Medical History: Cancer Additional Family Medical History / Comment(s): COLON CANCER General Exam Limitations: no limitations General appearance: alert, in no apparent distress Head exam: Present: atraumatic, normocephalic, normal inspection Eye exam: Present: normal appearance, PERRL, EOMI. Absent: scleral icterus, conjunctival injection, periorbital swelling ENT exam: Present: normal exam, normal oropharynx, mucous membranes moist Neck exam: Present: normal inspection, full ROM. Absent: tenderness, meningismus, lymphadenopathy Respiratory exam: Present: rhonchi (Left lower). Absent: normal lung sounds bilaterally, respiratory distress, wheezes, rales, stridor Cardiovascular Exam: Present: regular rate, normal rhythm, normal heart sounds. Absent: systolic murmur, diastolic murmur, rubs, gallop, clicks Extremities exam: Present: normal capillary refill. Absent: pedal edema, calf tenderness Course Vital Signs 12/12/21 07:37 Temperature 98.5 F Pulse Rate 81 Respiratory 20 Rate Blood Pressure 140/83 O2 Sat by Pulse 97 Oximetry Medical Decision Making - Medical Decision Making Patient has negative covid 19, , x-ray shows evidence of early infiltrate left lower lobe consistent with patient's history patient's pulse ox within normal limits, no tachycardia, no fever noted. Patient was given Rocephin and discharged on azithromycin strict return parameters were discussed. - Lab Data Lab Results 12/12/21 Range/Units 07:53 Coronavirus (PCR) Not Detected (Not Detectd) Disposition Clinical Impression: Left lower lobe pneumonia Disposition: HOME SELF-CARE Condition: Stable Instructions (If sedation given, give patient instructions): Bacterial Pneumonia (ED) Additional Instructions: Please return to the Emergency Department if symptoms worsen or any other concerns. Prescriptions: Azithromycin [Zithromax Z-pack (6 tabs)] 0 mg PO DIRECTED #1 packet Is patient prescribed a controlled substance at d/c from ED?: No Referrals: Elyse Hammond MD [Primary Care Provider] - 1-2 days Time of Disposition: 08:39
[2021-12-12 08:52] VITALS: BP 122/77; PULSE 67; RESP 18; TEMP 98.7
== END 2021-12-12 09:02 | disposition home or self-care (01) ==
LOC: EC 07:33
DX: J18.9 Pneumonia, unspecified organism (principal); Z20.822 Contact with and (suspected) exposure to COVID-19; J45.909 Unspecified asthma, uncomplicated; E11.9 Type 2 diabetes mellitus without complications; K21.9 Gastro-esophageal reflux disease without esophagitis; I10 Essential (primary) hypertension; E78.5 Hyperlipidemia, unspecified; M19.90 Unspecified osteoarthritis, unspecified site; F41.9 Anxiety disorder, unspecified; Z79.84 Long term (current) use of oral hypoglycemic drugs; Z79.899 Other long term (current) drug therapy
CPT/HCPCS: 99283; 96372; 87635; 71046; J0696

== ENCOUNTER 2022-02-07 17:36 | Observation (INO) | payer MEDICARE ==
[2022-02-07] MEDS ORDERED: NITROGLYCERIN OINT 1 INCH/GM PACKET TOPICAL STA (17:44)
[2022-02-07 18:20] LABS: Albumin 3.7 g/dL (3.5-5.0); Calcium 8.3 mg/dL (8.4-10.2); Magnesium 1.6 mg/dL (1.6-2.3); Potassium 4.5 mmol/L (3.5-5.1); Total Bilirubin 0.4 mg/dL (0.2-1.3); Total Protein 6.1 g/dL (6.3-8.2)
[2022-02-07 18:22] LABS: Basophils % (A) 1 %; Eosinophils # (A) 0.1 k/uL (0-0.7); Eosinophils % (A) 2 %; HCT 34.7 % (39.0-53.0); HGB 10.4 gm/dL (13.0-17.5); Hypochromasia Marked; Lymphocytes # (A) 0.6 k/uL (1.0-4.8); Lymphocytes % (A) 12 %; MCH 23.3 pg (25.0-35.0); MCV 77.6 fL (80.0-100.0); Mean Platelet Volume 8.1; Microcytosis Slight; Monocytes # (A) 0.4 k/uL (0-1.0); Monocytes % (A) 7 %; Neutrophils # (A) 4.1 k/uL (1.3-7.7); Neutrophils % (A) 76 %; Platelet Count 207 k/uL (150-450); RBC 4.48 m/uL (4.30-5.90); RDW 15.2 % (11.5-15.5); WBC 5.4 k/uL (3.8-10.6)
[2022-02-07 18:23] LABS: Partial Thromboplastin Time 23.3 sec (22.0-30.0); Prothrombin Time 10.7 sec (9.0-12.0)
--- NOTE | 2022-02-07 18:54 | XR ---
EXAMINATION TYPE: XR chest 2V DATE OF EXAM: 02/07/2022 6:10 PM COMPARISON: Chest radiographs from 12/12/2021, CT chest 11/16/2020. TECHNIQUE: XR chest 2V Frontal and lateral views of the chest. CLINICAL INDICATION:Male, 71 years old with history of Chest Pain; FINDINGS: Lungs/Pleura: There is no evidence of pleural effusion, focal consolidation, or pneumothorax. Pulmonary vascularity: Unremarkable. Heart/mediastinum: Cardiomediastinal silhouette is unremarkable. Large hiatal hernia is present appea rs bigger than prior radiograph but similar prior CT. Musculoskeletal: No acute osseous pathology. IMPRESSION: 1. No acute cardiopulmonary disease/process. Large hiatal hernia similar to prior's.
--- NOTE | 2022-02-07 19:27 | ED ---
General Adult HPI - General Chief complaint: Chest Pain Stated complaint: chest pain, SOB Time Seen by Provider: 02/07/22 17:36 Source: patient, EMS, RN notes reviewed, old records reviewed Mode of arrival: EMS Limitations: no limitations - History of Present Illness Initial comments: This is a 71-year-old male with a past medical history significant for diabetes hypertension and high cholesterol patient also states his family history positive for heart disease. Patient comes in today because he started having left-sided chest pain also cause him to have shortness of breath. Patient denies any palpitations. Patient denies any radiation of the pain. Patient denied any diaphoretic episodes states she was mildly nauseated. Patient denies any recent fever chills or cough. Patient states he did difficulty flexing. Patient denies any abdominal pain patient denies any vomiting or diarrhea. - Related Data Home Medications Medication Instructions Recorded Confirmed Citalopram Hydrobromide [CeleXA] 20 mg PO DAILY 03/18/16 02/07/22 Enalapril [Vasotec] 5 mg PO DAILY 03/18/16 02/07/22 Metoprolol Tartrate [Lopressor] 25 mg PO BID 03/18/16 02/07/22 Montelukast Sodium [Singulair] 10 mg PO HS 03/18/16 02/07/22 glipiZIDE [Glucotrol] 20 mg PO AC-BID 01/08/21 02/07/22 Famotidine [Pepcid] 20 mg PO BID 02/07/22 02/07/22 Simvastatin [Zocor] 40 mg PO DAILY 02/07/22 02/07/22 metFORMIN HCL [Glucophage] 1,000 mg PO BID 02/07/22 02/07/22 Allergies Allergy/AdvReac Type Severity Reaction Status Date / Time No Known Allergies Allergy Verified 02/07/22 19:09 Review of Systems ROS Statement: Those systems with pertinent positive or pertinent negative responses have been documented in the HPI. ROS Other: All systems not noted in ROS Statement are negative. Past Medical History Past Medical History: Asthma, Cancer, Diabetes Mellitus, GERD/Reflux, Hyperlip idemia, Hypertension, Osteoarthritis (OA) Additional Past Medical History / Comment(s): HIATAL HERNIA, HX OF MELANOMA, FREQUENT DIARRHEA, HEMATURIA., ANEMIA. History of Any Multi-Drug Resistant Organisms: None Reported Past Surgical History: Cardiac Ablation, Heart Catheterization Additional Past Surgical History / Comment(s): MELANOMA REMOVED. COLONOSCOPY, Past Anesthesia/Blood Transfusion Reactions: No Reported Reaction Past Psychological History: Anxiety Smoking Status: Never smoker Past Alcohol Use History: None Reported Past Drug Use History: None Reported - Past Family History Father Family Medical History: Cancer Additional Family Medical History / Comment(s): COLON CANCER General Exam - General Exam Comments Initial Comments: GENERAL: Patient is well-developed and well-nourished. Patient is nontoxic and well- hydrated and is in mild distress. ENT: Neck is soft and supple. No significant lymphadenopathy is noted. Oropharynx is clear. Moist mucous membranes. Neck has full range of motion without elic iting any pain. EYES: The sclera were anicteric and conjunctiva were pink and moist. Extraocular movements were intact and pupils were equal round and reactive to light. Eyelids were unremarkable. PULMONARY: Unlabored respirations. Good breath sounds bilaterally. No audible rales rhonchi or wheezing was noted. CARDIOVASCULAR: There is a regular rate and rhythm without any murmurs gallops or rubs. ABDOMEN: Soft and nontender with normal bowel sounds. No palpable organomegaly was noted . There is no palpable pulsatile mass. SKIN: Skin is clear with no lesions or rashes and otherwise unremarkable. NEUROLOGIC: Patient is alert and oriented x3. Cranial nerves II through XII are grossly intact. Motor and sensory are also intact. Normal speech, volume and content. Symmetrical smile. MUSCULOSKELETAL: Normal extremities with adequate strength and full range of motion. No lower extremity swelling or edema. No calf tenderness. LYMPHATICS: No significant lymphadenopathy is noted PSYCHIATRIC: Normal psychiatric evaluation. Limitations: no limitations Course Vital Signs 02/07/22 02/07/22 17:38 19:22 Pulse Rate 86 91 Respiratory 18 18 Rate Blood Pressure 158/86 120/69 O2 Sat by Pulse 98 94 L Oximetry Medical Decision Making - Medical Decision Making EKG shows sinus rhythm at 81 bpm MS interval 174 QRS is 96 QT interval 370 QTC is 408 per patient's EKG shows no ST segment elevation or depression Chest x-ray showed no acute abnormality I spoke with Dr. Ho he agreed to admit the patient admitted the patient consult cardiology - Lab Data Result diagrams: 02/07/22 17:47 02/07/22 17:47 Lab Results 02/07/22 02/07/22 02/07/22 Range/Units 17:47 17:47 17:47 WBC 5.4 (3.8-10.6) k/uL RBC 4.48 (4.30-5.90) m/uL Hgb 10.4 L (13.0-17.5) gm/dL Hct 34.7 L (39.0-53.0) % MCV 77.6 L (80.0-100.0) fL MCH 23.3 L (25.0-35.0) pg MCHC 30.0 L (31.0-37.0) g/dL RDW 15.2 (11.5-15.5) % Plt Count 207 (150-450) k/uL MPV 8.1 Neutrophils % 76 % Lymphocytes % 12 % Monocytes % 7 % Eosinophils % 2 % Basophils % 1 % Neutrophils # 4.1 (1.3-7.7) k/uL Lymphocytes # 0.6 L (1.0-4.8) k/uL Monocytes # 0.4 (0-1.0) k/uL Eosinophils # 0.1 (0-0.7) k/uL Basophils # 0.0 (0-0.2) k/uL Hypochromasia Marked Microcytosis Slight PT 10.7 (9.0-12.0) sec INR 1.0 (<1.2) APTT 23.3 (22.0-30.0) sec Sodium (137-145) mmol/L Potassium (3.5-5.1) mmol/L Chloride (98-107) mmol/L Carbon Dioxide (22-30) mmol/L Anion Gap mmol/L BUN (9-20) mg/dL Creatinine (0.66-1.25) mg/dL Est GFR (CKD-EPI)AfAm (>60 ml/min/1.73 sqM) Est GFR (CKD-EPI)NonAf (>60 ml/min/1.73 sqM) Glucose (74-99) mg/dL Calcium (8.4-10.2) mg/dL Magnesium (1.6-2.3) mg/dL Total Bilirubin (0.2-1.3) mg/dL AST (17-59) U/L ALT (4-49) U/L Alkaline Phosphatase (38-126) U/L Troponin I (0.000-0.034) ng/mL Total Protein (6.3-8.2) g/dL Albumin (3.5-5.0) g/dL Coronavirus (PCR) Not Detected (Not Detectd) 02/07/22 02/07/22 Range/Units 17:47 17:47 WBC (3.8-10.6) k/uL RBC (4.30-5.90) m/uL Hgb (13.0-17.5) gm/dL Hct (39.0-53.0) % MCV (80.0-100.0) fL MCH (25.0-35.0) pg MCHC (31.0-37.0) g/dL RDW (11.5-15.5) % Plt Count (150-450) k/uL MPV Neutrophils % % Lymphocytes % % Monocytes % % Eosinophils % % Basophils % % Neutrophils # (1.3-7.7) k/uL Lymphocytes # (1.0-4.8) k/uL Monocytes # (0-1.0) k/uL Eosinophils # (0-0.7) k/uL Basophils # (0-0.2) k/uL Hypochromasia Microcytosis PT (9.0-12.0) sec INR (<1.2) APTT (22.0-30.0) sec Sodium 135 L (137-145) mmol/L Potassium 4.5 (3.5-5.1) mmol/L Chloride 104 (98-107) mmol/L Carbon Dioxide 25 (22-30) mmol/L Anion Gap 6 mmol/L BUN 16 (9-20) mg/dL Creatinine 1.06 (0.66-1.25) mg/dL Est GFR (CKD-EPI)AfAm 82 (>60 ml/min/1.73 sqM) Est GFR (CKD-EPI)NonAf 71 (>60 ml/min/1.73 sqM) Glucose 112 H (74-99) mg/dL Calcium 8.3 L (8.4-10.2) mg/dL Magnesium 1.6 (1.6-2.3) mg/dL Total Bilirubin 0.4 (0.2-1.3) mg/dL AST 24 (17-59) U/L ALT 15 (4-49) U/L Alkaline Phosphatase 102 (38-126) U/L Troponin I <0.012 (0.000-0.034) ng/mL Total Protein 6.1 L (6.3-8.2) g/dL Albumin 3.7 (3.5-5.0) g/dL Coronavirus (PCR) (Not Detectd) Disposition Clinical Impression: Chest pain Disposition: ADMITTED IP TO THIS [facility] Referrals: Nonstaff,Physician [Primary Care Provider] - 1-2 days Time of Disposition: 19:30
[2022-02-07] MEDS ORDERED: NITROGLYCERIN SL TABS 0.4 MG TAB SUBLINGUAL PRN (19:49)
[2022-02-07] MEDS: metFORMIN 500 MG TAB PO SCH (21:05)
[2022-02-07] MEDS: FAMOTIDINE 20 MG TAB PO SCH (21:06)
[2022-02-07] MEDS: MONTELUKAST 10 MG TAB PO SCH (21:06)
[2022-02-07] MEDS: METOPROLOL TARTRATE 25 MG TAB PO SCH (21:06)
[2022-02-07] MEDS: ACETAMINOPHEN TAB 325 MG TAB PO PRN (23:01)
[2022-02-07] MEDS: NITROGLYCERIN OINT 1 INCH/GM PACKET TOPICAL SCH (23:01)
[2022-02-08] MEDS: NITROGLYCERIN OINT 1 INCH/GM PACKET TOPICAL SCH (05:42)
[2022-02-08] MEDS: CITALOPRAM HYDROBROMIDE 20 MG TAB PO SCH (08:08)
[2022-02-08] MEDS: ATORVASTATIN 20 MG TAB PO SCH (08:08)
[2022-02-08] MEDS: glipiZIDE 10 MG TAB PO SCH ×2 (08:08→21:11)
[2022-02-08] MEDS: METOPROLOL TARTRATE 25 MG TAB PO SCH ×2 (08:08→21:20)
[2022-02-08] MEDS: FAMOTIDINE 20 MG TAB PO SCH ×2 (08:08→21:19)
[2022-02-08] MEDS: metFORMIN 500 MG TAB PO SCH ×2 (08:08→21:19)
[2022-02-08] MEDS ORDERED: ASPIRIN 325 MG TAB PO SCH (09:00)
[2022-02-08] MEDS ORDERED: lisinopriL 10 MG TAB PO SCH (09:00)
[2022-02-08 09:34] LABS: Chol/HDL Ratio 3.92 Ratio; LDL Cholesterol,Calculated 86.3 mg/dL (0.0-131.0)
--- NOTE | 2022-02-08 12:31 | P.CRDCN ---
History of Present Illness Consult date: 02/08/22 History of present illness: HISTORY OF PRESENT ILLNESS: This is a 71-year-old male with a past medical history significant for mild nonobstructive coronary artery disease, hypertension, hyperlipidemia, and diabetes. Patient follows in the office with Dr. Ga. We have been asked to see the patient in consultation for chest pain. Patient examined at the bedside in the emergency room. Patient states he has had a cough for the past few days. He reports becoming SOB due to to the cough which prompted him to come to the ER. He reports having some mild left sided chest pain yesterday due to the frequent coughing. No radiation of the pain. He denies chest pain or pressure at the time of examination.. * EKG reveals sinus mechanism with no signs of acute ischemia * Chest xray negative for acute process. * Laboratory data: WBC 5.4. Hemoglobin 10.4. Platelet count 207. Sodium 135. Potassium 4.5. BUN 16. Creatinine 1.06. Troponin negative 3. * Current home cardiac medications include metoprolol tartrate 25 mg twice a day, simvastatin 40 mg daily, and Vasotec 5 mg daily * Most recent echocardiogram obtained in December 2020 revealed ejection fraction 55-60%, mild MR, mild TR, mild to moderate aortic regurgitation * Cardiac catheterization history: January 2021 revealing mild obstructive disease in the right coronary artery and left normal coronary anatomy. Medical management was recommended. REVIEW OF SYSTEMS: At the time of my exam: CONSTITUTIONAL: Denies fever or chills. HEENT: Denies blurred vision, vision changes, or eye pain. Denies hemoptysis CARDIOVASCULAR: Denies chest pain. Denies orthopnea. Denies PND. Denies palpitations RESPIRATORY: Denies shortness of breath. GASTROINTESTINAL: Denies abdominal pain. Denies nausea or vomiting. HEMATOLOGIC: Denies bleeding disorders. GENITOURINARY: Denies any blood in urine. SKIN: Denies pruitis. Denies rash. PHYSICAL EXAM: VITAL SIGNS: Reviewed. GENERAL: Well-developed in no acute distress. HEENT: Head is normocephalic. Pupils are equal, round. Sclerae anicteric. Mucous membranes of the mouth are moist. Neck supple. No JVD or thyromegaly LUNGS: Respirations even and unlabored. Lungs essentially clear to auscultation bilaterally. HEART: Regular rate and rhythm. S1 and S2 heard. ABDOMEN: Soft. Nondistended. Nontender. EXTREMITIES: Normal range of motion. No clubbing or cyanosis. Peripheral pulses intact. No lower extremity edema NEUROLOGIC: Awake and alert. Oriented x 3. ASSESSMENT: Shortness of breath and cough Chest pain, troponins negative 3 Mild non-obstructive coronary artery disease Hypertension Hyperlipidemia Diabetes PLAN: An acute coronary event has been ruled out Resume home cardiac medications Patient may be discharged home today from a cardiac standpoint and follow up outpatient Nurse practitioner note has been reviewed by physician. Signing provider agrees with the documented findings, assessment, and plan of care. Past Medical History Past Medical History: Asthma, Coronary Artery Disease (CAD), Cancer, Diabetes Mellitus, GERD/Reflux, Hyperlipidemia, Hypertension, Osteoarthritis (OA), Pneumonia, Syncope Additional Past Medical History / Comment(s): NIDDM type II, melanoma removed from posterior neck, tachycardia/had ablations, hiatal hernia, frequent diarrhea, arthritis in bilateral legs, occasional lower back pain, past migraines, hematuria, anemia. History of Any Multi-Drug Resistant Organisms: None Reported Past Surgical History: Cardiac Ablation, Heart Catheterization Additional Past Surgical History / Comment(s): Cardiac ablation x2, cardiac cath 01/15/21 and in 2016, loop recorder implnated and since removed, melanoma removed, colonoscopy/benign polypectomy, Past Anesthesia/Blood Transfusion Reactions: No Reported Reaction Smoking Status: Never smoker - Past Family History Father Family Medical History: Cancer Additional Family Medical History / Comment(s): COLON CANCER Mother Family Medical History: No Reported History Additional Family Medical History / Comment(s): Mother was healthy Medications and Allergies Home Medications Medication Instructions Recorded Confirmed Type Citalopram Hydrobromide [CeleXA] 20 mg PO DAILY 03/18/16 02/07/22 History Metoprolol Tartrate [Lopressor] 25 mg PO BID 03/18/16 02/07/22 History Montelukast Sodium [Singulair] 10 mg PO HS 03/18/16 02/07/22 History glipiZIDE [Glucotrol] 20 mg PO AC-BID 01/08/21 02/07/22 History Famotidine [Pepcid] 20 mg PO BID 02/07/22 02/07/22 History Simvastatin [Zocor] 40 mg PO DAILY 02/07/22 02/07/22 History metFORMIN HCL [Glucophage] 1,000 mg PO BID 02/07/22 02/07/22 History Losartan [Cozaar] 25 mg PO DAILY #30 tab 02/08/22 Rx Allergies Allergy/AdvReac Type Severity Reaction Status Date / Time No Known Allergies Allergy Verified 02/07/22 19:09 Physical Exam Vitals: Vital Signs Pulse Resp BP Pulse Ox 02/08/22 08:15 90 18 117/68 95 02/08/22 05:19 74 18 125/81 92 L 02/08/22 04:00 77 18 100/58 95 02/08/22 01:00 77 18 02/08/22 00:00 84 18 02/07/22 23:05 90 18 124/82 98 02/07/22 21:07 104 H 18 135/82 96 02/07/22 19:22 91 18 120/69 94 L 02/07/22 17:38 86 18 158/86 98 Intake and Output 02/07/22 02/08/22 02/08/22 22:59 06:59 14:59 Other: Weight 92.986 kg 92.986 kg Results 02/07/22 17:47 02/07/22 17:47 Cardiac Enzymes 02/07/22 02/07/22 02/07/22 Range/Units 17:47 17:47 20:40 AST 24 (17-59) U/L Troponin I <0.012 <0.012 (0.000-0.034) ng/mL 02/07/22 Range/Units 23:12 AST (17-59) U/L Troponin I <0.012 (0.000-0.034) ng/mL Coagulation 02/07/22 Range/Units 17:47 PT 10.7 (9.0-12.0) sec APTT 23.3 (22.0-30.0) sec Lipids 02/08/22 Range/Units 04:38 Triglycerides 153.00 H (0.00-149.00) mg/dL Cholesterol 157.00 (0.00-200.00) mg/dL HDL Cholesterol 40.10 (40.00-60.00) mg/dL Cholesterol/HDL Ratio 3.92 Ratio CBC 02/07/22 Range/Units 17:47 WBC 5.4 (3.8-10.6) k/uL RBC 4.48 (4.30-5.90) m/uL Hgb 10.4 L (13.0-17.5) gm/dL Hct 34.7 L (39.0-53.0) % Plt Count 207 (150-450) k/uL Comprehensive Metabolic Panel 02/07/22 Range/Units 17:47 Sodium 135 L (137-145) mmol/L Potassium 4.5 (3.5-5.1) mmol/L Chloride 104 (98-107) mmol/L Carbon Dioxide 25 (22-30) mmol/L BUN 16 (9-20) mg/dL Creatinine 1.06 (0.66-1.25) mg/dL Glucose 112 H (74-99) mg/dL Calcium 8.3 L (8.4-10.2) mg/dL AST 24 (17-59) U/L ALT 15 (4-49) U/L Alkaline Phosphatase 102 (38-126) U/L Total Protein 6.1 L (6.3-8.2) g/dL Albumin 3.7 (3.5-5.0) g/dL Current Medications Generic Name Dose Route Start Last Admin Trade Name Freq PRN Reason Stop Dose Admin Acetaminophen 650 mg 02/07/22 22:55 02/07/22 23:01 Acetaminophen Tab 325 Mg Tab PO 650 mg Q4HR PRN Administration Fever and/ or Pain Atorvastatin Calcium 20 mg 02/08/22 09:00 02/08/22 08:08 Atorvastatin 20 Mg Tab PO 20 mg DAILY MEI Administration Citalopram Hydrobromide 20 mg 02/08/22 09:00 02/08/22 08:08 Citalopram Hydrobromide 20 Mg Tab PO 20 mg DAILY MEI Administration Famotidine 20 mg 02/07/22 21:00 02/08/22 08:08 Famotidine 20 Mg Tab PO 20 mg BID MEI Administration Glipizide 20 mg 02/08/22 07:30 02/08/22 08:08 Glipizide 10 Mg Tab PO 20 mg AC-BID MEI Administration Losartan Potassium 25 mg 02/09/22 09:00 Losartan 25 Mg Tab PO DAILY MEI Metformin HCl 1,000 mg 02/07/22 21:00 02/08/22 08:08 Metformin 500 Mg Tab PO 1,000 mg BID MEI Administration Metoprolol Tartrate 25 mg 02/07/22 21:00 02/08/22 08:08 Metoprolol Tartrate 25 Mg Tab PO 25 mg BID MEI Administration Montelukast Sodium 10 mg 02/07/22 21:00 02/07/22 21:06 Montelukast 10 Mg Tab PO 10 mg HS MEI Administration Nitroglycerin 0.4 mg 02/07/22 19:49 Nitroglycerin Sl Tabs 0.4 Mg Tab SUBLINGUAL Q5M PRN Chest Pain Intake and Output 02/07/22 02/08/22 02/08/22 22:59 06:59 14:59 Other: Weight 92.986 kg 92.986 kg Patient Weight 02/09/22 06:59 Weight 92.986 kg 02/07/22 17:47 02/07/22 17:47
--- NOTE | 2022-02-08 16:08 | P.HPIM ---
History of Present Illness H&P Date: 02/08/22 Chief Complaint: Cough and shortness of breath HISTORY OF PRESENT ILLNESS: This is a 71-year-old male with a previous medical history significant for hypertension and hypertensive cardiovascular disease, hyperlipidemia, diabetes mellitus type 2, history of mild persistent asthma, patient presented to the emergency department at [facility] yesterday because of increased shortness breath and spasmodic cough that appears to be dry and patient was using nebulized treatment at home without any relief, he ended up asked his to call 911, patient was started on oxygen 2 L nasal cannula, he was brought to the ER for evaluation, his chest x-ray did not show evidence of acute of normalities, it did show however have a hernia that is large and I believe that the culprit of his symptoms along with possible FRITZ inhibitor induced cough, I spoke with the patient about small frequent meals, and he would need to have a CT of the chest as an outpatient for evaluation of his hiatal hernia along with an EGD, and he may need to have this had a hernia repaired laparoscopically at [facility]. REVIEW OF SYSTEMS: Constitutional: No documented fever, no chills, no night sweats. No weight change. No weakness, fatigue or lethargy. No daytime sleepiness. HEENT: No headache. No blurred vision or double vision, no loss of vision. No loss of Hearing, no ringing in the ears, no dizziness. No nasal drainage or congestion. No epistaxis. No sore throat. Lungs: Positive for shortness of breath, positive for cough, positive for sputum production. No wheezing. Reports dyspnea with activity. Cardiovascular: No chest pain, no lower extremity edema. No palpitations. No paroxysmal nocturnal dyspnea. No orthopnea. No lightheadedness or dizziness. No syncopal episodes. Abdominal: Reports abdominal pain. No nausea, vomiting. No diarrhea. No constipation. No bloody or tarry stools reports loss of appetite. Genitourinary: No dysuria, increased frequency, urgency. No urinary retention. Musculoskeletal: No myalgias. No muscle weakness, no gait dysfunction, no frequent falls. No back pain. No neck pain. Integumentary: No wounds, no lesions. No rash or pruritus. No unusual bruising. No change in hair or nails. Neurologic: No aphasia. No facial droop. No change in mentation. No head injury. No headache. No paralysis. No paresthesia. Psychiatric: No depression. No anxiety. No mood swings. Endocrine: No abnormal blood sugars. No weight change. PAST MEDICAL HISTORY: Hypertension and hypertensive cardiovascular disease. Hyperlipidemia. Diabetes mellitus type 2. Mild persistent asthma. GERD. Hiatal hernia PAST SURGICAL HISTORY: Permanent pacemaker placement and removal. Melanoma resection on the back of the neck. Colonoscopy many years ago. SOCIAL HISTORY: Patient denies any history of smoking, he drinks occasionally, no drug use or abuse, lives with his . FAMILY HISTORY: Father at age 71 from CVA, mother at age of 80 from cervical vascular accident, patient has a brother was a smoker with COPD patient had 3 sisters one from COPD the other 2 are alive, patient has one son and one daughter no major medical problems. PHYSICAL EXAMINATION: General: 71-year-old male sitting up in bed in no apparent distress. HEENT: Head is atraumatic, normocephalic, pupils were equal round reactive to light and recommendation, extraocular muscle movement were intact, sclera nonicteric, conjunctivae were pale, mucous membranes of the mouth are somewhat dry. Neck: Supple, no JVP, normal carotid upstroke bilaterally, no lymphadenopathy. Chest: Decreased breath sounds at the bases, few rhonchi, no expiratory wheezes, no chest wall tenderness, no intercostal retractions. Heart: First heart sound is normal, second heart sounds normal there is systolic ejection murmur 2/6 located in the left sternal border. Abdomen: Soft, nontender, nondistended, positive bowel sounds, no hepatosplen omegaly Extremities: There is no edema no calf tenderness DP +2 bilaterally. Neurologic examination: Patient is awake alert and oriented X 3, cranial nerves II-12 appear grossly intact, muscle power were 5 out of 5 in upper extremities and 5 out of 5 in bilateral lower extremities, deep tendon reflexes normal bilaterally. ASSESSMENT AND PLAN: 1. Acute dry cough. This is likely due to the combination of large hiatal hernia as well as FRITZ inhibitor induced cough. Discontinue enalapril and start the patient on losartan 25 mg once every day, patient will need to have a computed tomography scan of the chest and abdomen for further evaluation of his hiatal hernia he would need an EGD as well done prior to possible Laparascopic repair of the hiatal hernia. 2. Hypertension and hypertensive cardiovascular disease. Continue patient on metoprolol 25 mg orally twice every day, discontinue enalapril and start the patient on losartan 25 mg orally once every day. 3. Hyperlipidemia. Continue patient on atorvastatin 20 mg orally once every day, monitor the patient with atenolol, keep LDL 55-70. 4. Diabetes mellitus type 2. Continue patient on metformin 1000 mg orally twice every day, continue glipizide 20 mg orally twice every day, patient will need to go on GLP-1 receptor agonist Vs SGLT2 INH. Continue sliding scale insulin as well. 5. Depressive disorder. Continue patient on citalopram 20 mg orally once every day. 6. DVT prophylaxis. Start the patient on heparin 5000 units subcutaneously every 8 hours . 7. GI prophylaxis Continue famotidine 20 mg orally twice every day. 8. Observation. 9. Full code. Past Medical History Past Medical History: Asthma, Cancer, Diabetes Mellitus, GERD/Reflux, Hyperlipidemia, Hypertension, Osteoarthritis (OA) Additional Past Medical History / Comment(s): HIATAL HERNIA, HX OF MELANOMA, FREQUENT DIARRHEA, HEMATURIA., ANEMIA. History of Any Multi-Drug Resistant Organisms: None Reported Past Surgical History: Cardiac Ablation, Heart Catheterization Additional Past Surgical History / Comment(s): MELANOMA REMOVED. COLONOSCOPY, Past Anesthesia/Blood Transfusion Reactions: No Reported Reaction Past Psychological History: Anxiety Smoking Status: Never smoker Past Alcohol Use History: None Reported Past Drug Use History: None Reported - Past Family History Father Family Medical History: Cancer Additional Family Medical History / Comment(s): COLON CANCER Mother Family Medical History: No Reported History Additional Family Medical History / Comment(s): Mother was healthy Medications and Allergies Home Medications Medication Instructions Recorded Confirmed Type Citalopram Hydrobromide [CeleXA] 20 mg PO DAILY 03/18/16 02/07/22 History Metoprolol Tartrate [Lopressor] 25 mg PO BID 03/18/16 02/07/22 History Montelukast Sodium [Singulair] 10 mg PO HS 03/18/16 02/07/22 History glipiZIDE [Glucotrol] 20 mg PO AC-BID 01/08/21 02/07/22 History Famotidine [Pepcid] 20 mg PO BID 02/07/22 02/07/22 History Simvastatin [Zocor] 40 mg PO DAILY 02/07/22 02/07/22 History metFORMIN HCL [Glucophage] 1,000 mg PO BID 02/07/22 02/07/22 History Losartan [Cozaar] 25 mg PO DAILY #30 tab 02/08/22 Rx Allergies Allergy/AdvReac Type Severity Reaction Status Date / Time No Known Allergies Allergy Verified 02/07/22 19:09 Physical Exam Vitals: Vital Signs Pulse Resp BP Pulse Ox 02/08/22 08:15 90 18 117/68 95 02/08/22 05:19 74 18 125/81 92 L 02/08/22 04:00 77 18 100/58 95 02/08/22 01:00 77 18 02/08/22 00:00 84 18 02/07/22 23:05 90 18 124/82 98 02/07/22 21:07 104 H 18 135/82 96 02/07/22 19:22 91 18 120/69 94 L 02/07/22 17:38 86 18 158/86 98 Intake and Output 02/07/22 02/08/22 02/08/22 22:59 06:59 14:59 Other: Weight 92.986 kg Results CBC & Chem 7: 02/07/22 17:47 02/07/22 17:47 Labs: Abnormal Lab Results - Last 24 Hours (Table) 02/07/22 02/07/22 02/08/22 Range/Units 17:47 17:47 04:38 Hgb 10.4 L (13.0-17.5) gm/dL Hct 34.7 L (39.0-53.0) % MCV 77.6 L (80.0-100.0) fL MCH 23.3 L (25.0-35.0) pg MCHC 30.0 L (31.0-37.0) g/dL Lymphocytes # 0.6 L (1.0-4.8) k/uL Sodium 135 L (137-145) mmol/L Glucose 112 H (74-99) mg/dL Calcium 8.3 L (8.4-10.2) mg/dL Total Protein 6.1 L (6.3-8.2) g/dL Triglycerides 153.00 H (0.00-149.00) mg/dL
[2022-02-08] MEDS: ACETAMINOPHEN TAB 325 MG TAB PO PRN (16:23)
[2022-02-08 16:49] LABS: Glucose,Whole Blood 95 mg/dL (75-99)
[2022-02-08] MEDS: INSULIN ASPART (NovoLOG) 100 UNIT/ML VIAL SQ SCH ×2 (16:49→21:12)
[2022-02-08 17:52] LABS: Glucose,Whole Blood 218 mg/dL (75-99)
[2022-02-08 20:37] LABS: Glucose,Whole Blood 156 mg/dL (75-99)
[2022-02-08] MEDS: MONTELUKAST 10 MG TAB PO SCH (21:20)
[2022-02-08] MEDS: HEPARIN SODIUM,PORCINE/PF 5,000 UNIT/0.5 ML SYRINGE SQ SCH (21:21)
[2022-02-09 07:46] LABS: Glucose,Whole Blood 186 mg/dL (75-99)
[2022-02-09 08:27] VITALS: BP 123/76; PULSE 78; RESP 16; TEMP 98.2
[2022-02-09] MEDS: HEPARIN SODIUM,PORCINE/PF 5,000 UNIT/0.5 ML SYRINGE SQ SCH (08:27)
[2022-02-09] MEDS: glipiZIDE 10 MG TAB PO SCH (08:28)
[2022-02-09] MEDS: METOPROLOL TARTRATE 25 MG TAB PO SCH (08:28)
[2022-02-09] MEDS: INSULIN ASPART (NovoLOG) 100 UNIT/ML VIAL SQ SCH (08:28)
[2022-02-09] MEDS: FAMOTIDINE 20 MG TAB PO SCH (08:28)
[2022-02-09] MEDS: ATORVASTATIN 20 MG TAB PO SCH (08:29)
[2022-02-09] MEDS: CITALOPRAM HYDROBROMIDE 20 MG TAB PO SCH (08:29)
[2022-02-09] MEDS: metFORMIN 500 MG TAB PO SCH (08:29)
[2022-02-09] MEDS ORDERED: LOSARTAN 25 MG TAB PO SCH (09:00)
--- NOTE | 2022-02-09 10:56 | P.DS ---
Providers Date of admission: 02/07/22 19:49 Expected date of discharge: 02/09/22 Attending physician: Re Ho Primary care physician: Physician Nonstaff Hospital Course: HISTORY OF PRESENT ILLNESS: This is a 71-year-old male with a previous medical history significant for hypertension and hypertensive cardiovascular disease, hyperlipidemia, diabetes mellitus type 2, history of mild persistent asthma, patient presented to the emergency department at [facility] yesterday because of increased shortness breath and spasmodic cough that appears to be dry and patient was using nebulized treatment at home without any relief, he ended up asked his to call 911, patient was started on oxygen 2 L nasal cannula, he was brought to the ER for evaluation, his chest x-ray did not show evidence of acute of normalities, it did show however have a hernia that is large and I believe that the culprit of his symptoms along with possible FRITZ inhibitor induced cough, I spoke with the patient about small frequent meals, and he would need to have a CT of the chest as an outpatient for evaluation of his hiatal hernia along with an EGD, and he may need to have this had a hernia repaired laparoscopically at [facility]. 02/09: Patient was seen by balance weigher and cleared for discharge. Patient has been afebrile, HR 78, BP 123/76, PO 97% on RA. CBG 156-186. Triglycerides 153, cholesterol 157, LDL 86, HDL 40. Patient has been transitioned over to losartan and off FRITZ inhibitor. Patient will be discharged today in stable condition. DISCHARGE DIAGNOSES: 1. Acute dry cough. This is likely due to the combination of large hiatal hernia as well as FRITZ inhibitor induced cough. 2. Hypertension and hypertensive cardiovascular disease. 3. Hyperlipidemia. 4. Diabetes mellitus type 2. 5. Depressive disorder. DISCHARGE PLAN Home Greater than 35 minutes was utilized and coordinating patient's discharge. Impression and plan of care have been directed as dictated by the signing physician. Bettie Roldan nurse practitioner acting as scribe for signing physician. Patient Condition at Discharge: Good Plan - Discharge Summary Discharge Rx Participant: No New Discharge Prescriptions: New Losartan [Cozaar] 25 mg PO DAILY #30 tab Continue Montelukast Sodium [Singulair] 10 mg PO HS Citalopram Hydrobromide [CeleXA] 20 mg PO DAILY Metoprolol Tartrate [Lopressor] 25 mg PO BID Famotidine [Pepcid] 20 mg PO BID glipiZIDE [Glucotrol] 20 mg PO AC-BID metFORMIN HCL [Glucophage] 1,000 mg PO BID Simvastatin [Zocor] 40 mg PO DAILY Discontinued Enalapril [Vasotec] 5 mg PO DAILY Discharge Medication List Citalopram Hydrobromide [CeleXA] 20 mg PO DAILY 03/18/16 [History] Metoprolol Tartrate [Lopressor] 25 mg PO BID 03/18/16 [History] Montelukast Sodium [Singulair] 10 mg PO HS 03/18/16 [History] glipiZIDE [Glucotrol] 20 mg PO AC-BID 01/08/21 [History] Famotidine [Pepcid] 20 mg PO BID 02/07/22 [History] Simvastatin [Zocor] 40 mg PO DAILY 02/07/22 [History] metFORMIN HCL [Glucophage] 1,000 mg PO BID 02/07/22 [History] Losartan [Cozaar] 25 mg PO DAILY #30 tab 02/08/22 [Rx] Follow up Appointment(s)/Referral(s): Re Ho MD [STAFF PHYSICIAN] - 1 Week Patient Instructions/Handouts: Chest Pain (ED), Costochondritis (ED) Discharge Disposition: HOME SELF-CARE
== END 2022-02-09 11:16 | disposition home or self-care (01) ==
LOC: EC 17:36 → 6NMEDSUR 19:49
PROVIDERS: ADMIT Internal Medicine; ATTEND Internal Medicine
DX: R07.89 Other chest pain (principal); J45.30 Mild persistent asthma, uncomplicated; K44.9 Diaphragmatic hernia without obstruction or gangrene; I11.9 Hypertensive heart disease without heart failure; E11.9 Type 2 diabetes mellitus without complications; E78.00 Pure hypercholesterolemia, unspecified; E78.5 Hyperlipidemia, unspecified; K21.9 Gastro-esophageal reflux disease without esophagitis; M19.90 Unspecified osteoarthritis, unspecified site; D64.9 Anemia, unspecified; I25.10 Atherosclerotic heart disease of native coronary artery without angina pectoris; I08.3 Combined rheumatic disorders of mitral, aortic and tricuspid valves; G43.909 Migraine, unspecified, not intractable, without status migrainosus; F41.9 Anxiety disorder, unspecified; F32.A Depression, unspecified; Z79.84 Long term (current) use of oral hypoglycemic drugs; Z79.899 Other long term (current) drug therapy; Z85.820 Personal history of malignant melanoma of skin; Z87.01 Personal history of pneumonia (recurrent); Z98.890 Other specified postprocedural states; Z86.010 Personal history of colon polyps; Z82.5 Family history of asthma and other chronic lower respiratory diseases; Z82.3 Family history of stroke; Z81.2 Family history of tobacco abuse and dependence; Z82.49 Family history of ischemic heart disease and other diseases of the circulatory system; Z80.0 Family history of malignant neoplasm of digestive organs
CPT/HCPCS: 96372 ×2; 99285; 36415; 93005; 80061; 80053; 83735; 84484; 85025; 85610; 85730; 87635; 71046; G0378 ×3; J1644 ×2